=== PATIENT | female | born 1980 ===

== ENCOUNTER → 2017-05-27 | Outpatient (CLI) | payer OTHER, SELFPAY ==
[~2017-05-27] MED LIST: CITA20 PO; MULVITMINE PO
[2017-05-29 12:23] LABS: HPV Genotype 16 Not Detected (NOTDET); HPV Genotype 18 Not Detected (NOTDET)
[2017-06-14 11:24] LABS: HPV High Risk Other Not Detected (NOTDET)
== END ==
LOC: LAB SHORT 11:50 → LAB 11:50
PROVIDERS: Registered Nurse Community Health
DX: Z12.4 Encounter for screening for malignant neoplasm of cervix (principal)
CPT/HCPCS: 87624; G0123

== ENCOUNTER → 2017-07-08 | Outpatient (CLI) | payer OTHER, SELFPAY | LOC: LAB SHORT 13:39 → LAB 13:39 | DX: N64.52 Nipple discharge (principal) | CPT/HCPCS: 87070; 87205 ==

== ENCOUNTER → 2024-07-30 | Outpatient (CLI) | payer BC, OTHER ==
[2024-08-12 10:15] LABS: HPV HIGH RISK BY TMA Not Detected; HPV SOURCE Cervical
== END | disposition home or self-care (01) ==
LOC: LAB 18:36 → LAB SHORT 18:36
PROVIDERS: Family Medicine
DX: Z01.419 Encounter for gynecological examination (general) (routine) without abnormal findings (principal)
CPT/HCPCS: 87624; G0123